=== PATIENT | male | born 1975 | race American Indian/Alaskan Native ===

== ENCOUNTER 2018-09-23 17:30 | Emergency (ER) | payer SELFPAY ==
[~2018-09-23 17:30] MED LIST: ADRENALIN ONE; D50W (25GM) Syringe IV ONE; SODIUM BICARBONATE IV ONE
--- NOTE | 2018-09-23 17:49 | Emergency Department Report ---
ED CPR HPI - General Stated Complaint: CARDIAC ARREST Time Seen by Provider: 09/23/18 17:30 Source: EMS Mode of arrival: Stretcher Limitations: Altered Mental Status, Physical Limitation - History of Present Illness MD Complaint: found unresponsive Place: home Bystander CPR Performed: No AED Applied by Bystander/Stripping Shovel Operator: No Shock Advised: No Initial Findings in the Field: unresponsive ROSC in the Field: No Associated Injuries: No Treatments Prior to Arrival: BMV, other airway device, chest compressions, epinephrine mgs #, sodium bicarbonate, glucose ED Review of Systems ROS: Stated complaint: CARDIAC ARREST Other details as noted in HPI Comment: Unobtainable due to pts medical conditions ED Past Medical Hx - Past Medical History Previous Medical History?: Yes Additional medical history: stomach cancer - Surgical History Past Surgical History?: No - Family History Family history: no significant - Social History Smoking Status: Never Smoker Substance Use Type: None ED Physical Exam - General Limitations: Altered Mental Status, Physical Limitation General appearance: obtunded - Head Head exam: Present: atraumatic, normocephalic - Eye Eye exam: Present: other (he was fixed dilated) - ENT ENT exam: Present: other (dark black vomitus in oral cavity) - Neck Neck exam: Present: normal inspection - Cardiovascular Cardiovascular Exam: Present: other (no pulse noted) - GI/Abdominal GI/Abdominal exam: Present: distended - Extremities Exam Extremities exam: Present: normal inspection - Skin Skin exam: Present: warm, dry, intact ED Course - Reevaluation(s) Reevaluation #1: Patient arrived by EMS. Patient of cardiac arrest. The patient is intubated with a Percy tube. Copious amounts of dark vomitus coming out of the tube. Patient extubated and reintubated medially with an ET tube, See procedure note. Code ran in accordance with ACLS protocol. 09/23/18 17:26 Resuscitation efforts discontinued. Resuscitation efforts unsuccessful. No signs of life. No pulse. The patient given multiple rounds of medication prior to arrival by EMS and multiple medications given in hospital. code ran in accordance with ACLS protocol. See code note. 09/23/18 17:39 Family support given. family meeting done 09/23/18 18:01 ED Medical Decision Making - Medical Decision Making Patient is a 43-year-old male that presents emergency room in full cardiac arrest. Resuscitation efforts were unsuccessful and terminated. Code ran in accordance with ACLS protocol. Family meeting done. Family support given. - Differential Diagnosis CPR. Cardiac arrest Critical Care Time: Yes Critical care attestation.: If time is entered above; I have spent that time in minutes in the direct care of this critically ill patient, excluding procedure time. Critical Care Time: 35 minutes ED Disposition Clinical Impression: Cardiac arrest Disposition: DC-20 Is pt being admited?: No Does the pt Need Aspirin: No Condition: Undetermined Time of Disposition: 18:30
== END 2018-09-23 19:02 ==
LOC: ED 17:30
DX: I46.9 Cardiac arrest, cause unspecified (principal)
CPT/HCPCS: 31500; 99291; J0171